=== PATIENT | female | born 1935 | race African-American/Black ===

== ENCOUNTER → 2016-11-17 | Outpatient (CLI) | payer MEDICARE ==
[~2016-11-17] MED LIST: 8 HOUR PAIN RE650 M1 PO; ALDACTAZIDE PO; ALEVE220 M1 PO; COREG12.5 MG PO; HYDROCHLOROTH12.5 MG PO; LEVEMIR SUBQ; LOVASTATIN20 MG PO; ZESTRIL40 MG PO
--- NOTE | ~2016-11-17 | US77 ---
[facility] A Service of [facility] & [facility] / [facility] RADIOLOGY TEXT RESULTS PATIENT: QUYNH AGUILAR LOCATION: [facility] : 39 UNIT #: [id number] AGE: [address]: Moiz Gordon MD SEX: F ORDER DR: [id number] [facility] [address] [place], [place] [address] [id number] O MR#: [id number] Acc #: [id number] NAME: QUYNH AGUILAR : 1935 SEX: F STUDY DATE/TIME: 11/17/2016 14:08 UNIT: [facility] ROOM: STUDY DESCRIPTION: US Kidney Bilateral Complete Attending Physician: Moiz Gordon M.D. Referring Physician: Moiz Gordon M.D. Ordering Physician: Moiz Gordon M.D. Primary Care Physician: Moiz Gordon M.D. MEDICAL IMAGING REPORT This report is preliminary unless electronic signature is present EXAM Renal ultrasound INDICATIONS Renal insufficiency. BUN 17, creatinine 1.27, eGFR 40. TECHNIQUE Pino-scale and Doppler imaging of the kidneys and bladder. FINDINGS The right kidney measures 9.9 cm. Cortical thickness within normal limits. There is an 11 mm cyst lower pole of the right kidney. There is a 1.4 cm cyst in the upper pole of the right kidney. Left kidney measures 9.2 cm in length. Cortical thickness within normal limits. No hydronephrosis. Unremarkable bladder. IMPRESSION Small right renal cysts. Otherwise, negative renal ultrasound. Dictated by... Raudel Freedman M.D. THIS IS AN ELECTRONICALLY VERIFIED REPORT Raudel Freedman M.D. at 11/21/2016 7:22 AM EED/isidro TD: 11/17/2016 21:44 JOB #: [id number] MEDICAL IMAGING REPORT Page 1 of 1 COPY
== END | disposition home or self-care (01) ==
LOC: CGUS 13:19
DX: R94.4 Abnormal results of kidney function studies (principal); N28.1 Cyst of kidney, acquired
CPT/HCPCS: 76770